=== PATIENT | female | born 1975 | race Caucasian/White ===

== ENCOUNTER 2017-09-12 13:44 | Outpatient (CLI) | payer BC | END 2017-09-12 13:45 | disposition home or self-care (01) | LOC: BICRAD 13:44 | PROVIDERS: ATTEND Allergy & Immunology | DX: R07.9 Chest pain, unspecified (principal); M41.9 Scoliosis, unspecified | CPT/HCPCS: 72081 ==

== ENCOUNTER 2018-10-18 08:47 | Inpatient (IN) | payer BC ==
[2018-10-18] MEDS ORDERED: Ondansetron PF 4 MG/2 ML Vial ONE ×2 (08:56→13:24)
[2018-10-18] MEDS ORDERED: PHENYLEPHRINE-NS 100 MCG/ML 10 ML SYRINGE ONE ×2 (08:56→13:24)
[2018-10-18 09:17] VITALS: BMI 29.6
[2018-10-18] MEDS ORDERED: hydrALAZINE 20 MG/ML VIAL SLOW IVP PRN ×3 (09:21→15:40)
[2018-10-18] MEDS ORDERED: Butorphanol Tartrate 1 MG/ML VIAL SLOW IVP PRN (09:23)
[2018-10-18] MEDS ORDERED: Lactated Ringer's 1,000 ML IV SCH (09:30)
[2018-10-18] MEDS ORDERED: Butorphanol Tartrate 1 MG/ML VIAL ONE (09:37)
[2018-10-18] MEDS: Lactated Ringer's 1,000 ML IV SCH ×2 (10:40→11:34)
[2018-10-18] MEDS ORDERED: Diphenoxylate HCl/Atropine Tablet PO PRN ×2 (10:43)
[2018-10-18] MEDS ORDERED: Ibuprofen 800 MG TAB PO PRN (10:43)
[2018-10-18] MEDS ORDERED: Ondansetron PF 4 MG/2 ML Vial IVP PRN ×4 (10:43→15:40)
[2018-10-18] MEDS ORDERED: NS / Oxytocin 40 units/1000ml 1,000 ML IV PRN (10:43)
[2018-10-18] MEDS ORDERED: Carboprost 250 MCG/ML AMP IM PRN (10:43)
[2018-10-18] MEDS ORDERED: Promethazine HCl 25 MG/ML VIAL IM PRN ×3 (10:43→14:28)
[2018-10-18] MEDS ORDERED: Misoprostol 200 MCG TAB PR PRN (10:43)
[2018-10-18] MEDS ORDERED: HYDROcodone/Acetaminophen 5/325 mg Tablet PO PRN ×2 (10:43)
[2018-10-18] MEDS ORDERED: Acetaminophen 500 MG TAB PO PRN (10:43)
[2018-10-18] MEDS ORDERED: Lidocaine 1% (PF) 30 ML VIAL SC PRN (10:43)
[2018-10-18] MEDS ORDERED: Methylergonovine 0.2 MG/ML VIAL IM PRN (10:43)
[2018-10-18] MEDS ORDERED: Fentanyl 4 mcg/Bup 0.1% Cadd 100 ML ONE (10:58)
[2018-10-18 11:01] LABS: Mean Corpuscular HGB CONC 34.6 g/dL (32.0-36.0); Mean Corpuscular Hemoglobin 29.4 pg (27.0-31.0); Mean Corpuscular Volume 84.9 fL (78.0-98.0); Mean Platelet Volume 8.5 fL (7.4-10.4); Platelet Count 278 thou/uL (130-400); RBC Distribution Width 13.6 % (11.5-14.5); Red Blood Cell (RBC) Count 4.42 mill/uL (4.20-5.40); White Blood Cell (WBC) Count 13.2 thou/uL (4.8-10.8)
[2018-10-18] MEDS ORDERED: Bupivacaine 0.25% HCL 30 ML VIAL ONE (11:11)
[2018-10-18 11:42] LABS: HBSAg Index 0.16 S/CO (0-0.99); Hep B Surf Ag Non-Reactive S/CO (NonReactive); Syphilis Antibody Nonreactive (Nonreactive); Syphilis Antibody Index 0.03 S/CO (<1.00 Non-Reactive)
[2018-10-18] MEDS ORDERED: Acetaminophen 325 MG TAB PO PRN (11:51)
[2018-10-18] MEDS ORDERED: Naloxone HCl 0.4 mg/ml Vial IVP PRN ×4 (11:51→14:28)
[2018-10-18] MEDS ORDERED: Lactated Ringer's 500 ML IV PRN (11:51)
[2018-10-18] MEDS ORDERED: diphenhydrAMINE 50 MG/ML VIAL IVP PRN (11:51)
[2018-10-18] MEDS ORDERED: ePHEDrine/0.9% NaCl/PF SYRINGE 50 mg/10 ml SLOW IVP PRN (11:51)
[2018-10-18] MEDS ORDERED: Communication Order-Pharmacy FS SCH ×2 (12:00→14:30)
[2018-10-18] MEDS ORDERED: Fentanyl 4 mcg/Bupivacaine 0.1% Cassette 100 ML EPIDURAL SCH (12:00)
[2018-10-18] MEDS ORDERED: Lidocaine 2% 10 ML INJ ONE (13:19)
[2018-10-18] MEDS ORDERED: MORPHINE 5 MG/10 ML PF VIAL ONE (13:23)
[2018-10-18] MEDS ORDERED: ePHEDrine/0.9% NaCl/PF SYRINGE 50 mg/10 ml ONE (13:24)
[2018-10-18] MEDS ORDERED: Oxytocin 10 UNITS/ML VIAL ONE (13:24)
[2018-10-18] MEDS ORDERED: Terbutaline Sulfate 1 MG/ML VIAL ONE (13:26)
[2018-10-18] MEDS ORDERED: Bicitra 30 ML UDCUP ONE (13:27)
[2018-10-18] MEDS ORDERED: Terbutaline Sulfate 1 MG/ML VIAL SC ONE (13:31)
--- NOTE | 2018-10-18 13:31 | PDOC.EVN ---
Event Note - Event Note Event Note: Recurrent late decels noted, unable to be resolved with resuscitative measures. Discussed with Dr. Gandhi - will proceed with LTCS. Terbutaline given.
[2018-10-18] MEDS ORDERED: CEFAZOLIN 2 GM in Premix Bag 1 BAG IVPB SCH (13:45)
[2018-10-18] MEDS ORDERED: Bicitra 30 ML UDCUP PO SCH (13:45)
[2018-10-18] MEDS ORDERED: Azithromycin 500 MG in Sodium Chloride 0.9% 250 ML 250 ML IVPB SCH (13:45)
[2018-10-18 14:23] LABS: Analyzer IN Cardio OR
[2018-10-18] MEDS ORDERED: Ondansetron HCl/PF 4 MG/2 ML Vial IVP PRN (14:28)
[2018-10-18] MEDS ORDERED: Promethazine HCl 25 MG SUPP PR PRN (14:28)
[2018-10-18] MEDS ORDERED: HYDROmorphone 2 MG/ML VIAL SLOW IVP PRN (14:28)
[2018-10-18] MEDS ORDERED: L&D-Morphine 4 MG/ML VIAL SLOW IVP PRN (14:28)
[2018-10-18] MEDS ORDERED: Meperidine HCl/PF 25 MG/ML VIAL SLOW IVP PRN (14:28)
[2018-10-18] MEDS ORDERED: Ketorolac Tromethamine 30 MG/ML VIAL IVP SCH (14:30)
[2018-10-18] MEDS ORDERED: Bisacodyl 10 MG SUPP PR PRN (15:40)
[2018-10-18] MEDS ORDERED: Simethicone Chewable 80 MG TAB PO PRN (15:40)
[2018-10-18] MEDS ORDERED: Ketorolac Tromethamine 30 MG/ML VIAL ONE (16:26)
[2018-10-18] MEDS ORDERED: Meperidine HCl/PF 25 MG/ML VIAL ONE (16:27)
[2018-10-18] MEDS: Ketorolac Tromethamine 30 MG/ML VIAL IVP PRN (16:28)
[2018-10-18] MEDS: diphenhydrAMINE 50 MG/ML VIAL IVP PRN (17:54)
[2018-10-18] MEDS: Docusate Calcium (SURFAK) 240 MG CAP PO SCH (20:39)
--- NOTE | 2018-10-18 20:49 | OP ---
DATE OF PROCEDURE: 10/18/2018 PREOPERATIVE DIAGNOSES: 1. A 42-year-old [place] female, G1, P0, at 40 to 41 weeks, spontaneous onset of labor. 2. Non-reassuring heart rate tracing remote from delivery at 6 cm with recurrent late decelerations, unresponsive to medical management trials. 3. Moderate meconium. POSTOPERATIVE DIAGNOSES: 1. A 42-year-old [place] female, G1, P0, at 40 to 41 weeks, spontaneous onset of labor. 2. Non-reassuring heart rate tracing remote from delivery at 6 cm with recurrent late decelerations, unresponsive to medical management trials. 3. Moderate meconium. PROCEDURE PERFORMED: Primary low-transverse section without extension. INFORMATION AND DATA ARCHITECT ANALYST SURGEON: Aretha Pena MD ANESTHESIA: Epidural. ESTIMATED BLOOD LOSS: 400 mL. COMPLICATIONS: None. ANTIBIOTICS: 2 g Ancef, on-call to OR. FINDINGS: 1. Male , vertex presentation, double nuchal cord noted, 6 pounds 15 ounces weight. 7 and 9. 2. Meconium moderate noted with meconium staining of placental membranes. 3. Normal-appearing fallopian tubes, uterus, and ovaries. PATHOLOGY: Placenta. COUNTS: Correct x2. DISPOSITION: Recovery room, stable. DESCRIPTION OF PROCEDURE: The patient was taken back to the operating room for nonreassuring heart rate tracing. Her epidural was adequately dosed, and she was prepped and draped in usual sterile fashion. A Pfannenstiel incision was made through the lower abdomen was carried down to the fascia. Fascia was nicked in the midline. Fascial incision was extended bilaterally using curved Miller scissors. The rectus fascia was then dissected superiorly and inferiorly off the rectus muscle bellies. The rectus muscle bellies divided in midline, and peritoneal cavity was entered. Bladder blade was placed. A 2-cm hysterotomy incision was made above the vesicouterine peritoneal fold. This was extended via finger fractionation. The baby was then delivered in the vertex presentation. The mouth and nares of the were bulb suctioned on the abdomen. The cord was doubly clamped and cut and handed to the acid wash operator, Dr. Pate, who was in attendance. Usual cord blood and segment for arterial blood gas were sent along with cord blood. Placenta was extracted, and uterus was externalized. The uterus was curetted of any remaining placental fragments with a dry laparotomy sponge. Hysterotomy incision was closed with #1 Monocryl in running locking fashion with good hemostasis noted. The uterus was placed back in the abdomen. Pelvis was irrigated and suctioned. There was some oozing on the right inferior border of the hysterotomy incision, and additional [id number]-tz-lapie stitch was placed with Monocryl securing hemostasis. The pelvis again was irrigated and suctioned, hemostasis was confirmed. The rectus muscle belly was noted to be hemostatic prior to fascial closure. The fascia was closed with 0 PDS suture x2 in a running continuous fashion. Subcutaneous tissue was irrigated, noted to be hemostatic prior to skin approximation with shawna. The surgery was terminated. There were no anesthetic or surgical complications. Job ID: [id number]
[2018-10-19] MEDS: diphenhydrAMINE 50 MG/ML VIAL IVP PRN ×2 (00:18→06:01)
[2018-10-19] MEDS: Ketorolac Tromethamine 30 MG/ML VIAL IVP PRN ×2 (00:26→06:02)
[2018-10-19] MEDS: Lactated Ringer's 1,000 ML IV SCH ×3 (00:28→15:33)
[2018-10-19] MEDS ORDERED: HYDROcodone/Acetaminophen 5/325 mg Tablet PO PRN ×2 (02:30)
[2018-10-19] MEDS ORDERED: Sodium Chloride 0.9% 0 ML ONE (03:28)
[2018-10-19 06:55] LABS: Hemoglobin 9.2 g/dL (12.0-16.0); Mean Corpuscular Hemoglobin 30.1 pg (27.0-31.0); Mean Corpuscular Volume 88.4 fL (78.0-98.0); Mean Platelet Volume 7.2 fL (7.4-10.4); Platelet Count 203 thou/uL (130-400); RBC Distribution Width 13.6 % (11.5-14.5); Red Blood Cell (RBC) Count 3.05 mill/uL (4.20-5.40); White Blood Cell (WBC) Count 14.7 thou/uL (4.8-10.8)
--- NOTE | 2018-10-19 07:41 | PDOC.PP ---
Post Progress Note Post Day #: 1 Subjective: Doing well. Pain well controlled. Ocampo d/c'd this am, has not attempted to urinate. PO intake tolerated: yes Ambulation: no Vital Signs (12 hours) Temp Pulse Resp BP 10/19/18 06:10 99.0 F 80 16 107/53 L 10/19/18 00:20 99.0 F 79 18 122/57 L Weight Weight 178 lb - Physical Examination General: NAD Respiratory: non-labored breathing Abdominal: lochia (normal), no distention, appropriately TTP Fundus firm & at: below umbilicus Skin: CS incision dry & intact, no rash Neurological: no gross focal deficits Psychiatric: A&Ox3, normal affect Result Diagrams: 10/19/18 06:14 Additional Labs: Post Labs Blood Type O POSITIVE 10/18/18 12:20 Hep Bs Antigen Non-Reactive S/CO (NonReactive) 10/18/18 10:45 (1) delivery delivered Code(s): O82 - ENCOUNTER FOR DELIVERY WITHOUT INDICATION Status: Acute (2) heart rate decelerations affecting management of mother Code(s): O36.8390 - MATERN CARE FOR ABNLT FETL HRT RATE OR RHYM, UNSP TRI, UNSP Status: Acute - Assessment/Plan Continue routine post-op care. Encouraged ambulation today. Possible d/c tomorrow vs Sunday.
[2018-10-19] MEDS: Prenatal Vitamin 1 TAB PO SCH (08:52)
[2018-10-19] MEDS: Docusate Calcium (SURFAK) 240 MG CAP PO SCH ×2 (08:53→21:47)
[2018-10-19] MEDS: Acetaminophen 325 MG TAB PO PRN ×3 (08:55→22:16)
[2018-10-19] MEDS ORDERED: Adacel (T-DAP) 0.5 ML SYRINGE IM ONE (09:00)
[2018-10-19] MEDS: Naloxone HCl 0.4 mg/ml Vial IV PRN ×3 (13:56→15:03)
[2018-10-19] MEDS: Ibuprofen 800 MG TAB PO SCH ×2 (13:59→21:47)
[2018-10-19] MEDS ORDERED: Lanolin Ointment 7 GM TUBE TOP PRN (19:46)
--- NOTE | 2018-10-20 01:01 | PDOC.PP ---
Post Progress Note Post Day #: 2 Subjective: 42 yo F s/p pLTCS pp day 2. Pt reports pain well controlled with tylenol and motrin. All pp milestones met. PO intake tolerated: yes Flatus: yes Ambulation: yes Vital Signs (12 hours) Temp Pulse Resp BP 10/19/18 19:55 98.6 F 80 18 114/50 L 10/19/18 17:30 98.3 F 72 14 103/51 L Weight Weight 80.739 kg - Physical Examination General: NAD Cardiovascular: no m/r/g, RRR Respiratory: clear to auscultation bilaterally Abdominal: no distention, appropriately TTP Skin: CS incision dry & intact Neurological: no gross focal deficits Psychiatric: normal affect Result Diagrams: 10/19/18 06:14 Additional Labs: Post Labs Blood Type O POSITIVE 10/18/18 12:20 Hep Bs Antigen Non-Reactive S/CO (NonReactive) 10/18/18 10:45 (1) delivery delivered Code(s): O82 - ENCOUNTER FOR DELIVERY WITHOUT INDICATION Status: Acute - Assessment/Plan PP day 2 s/p pLTCS - will plan for dc to home this afternoon - pain control with prn tramadol ttylenol and motrin - f/u within the week for staple removal Addendum - Attending - Attending Attestation Date/Time: 10/20/18 [id number] I personally evaluated the patient and discussed the management with Dr. Hughes. I agree with the Assessment and Plan documented above.
[2018-10-20] MEDS: Lactated Ringer's 1,000 ML IV SCH ×2 (04:50→11:52)
[2018-10-20] MEDS: Ibuprofen 800 MG TAB PO SCH ×2 (06:02→14:10)
[2018-10-20 09:01] VITALS: BP 114/55; TEMP 98.4
[2018-10-20] MEDS: Docusate Calcium (SURFAK) 240 MG CAP PO SCH (10:17)
[2018-10-20] MEDS: Prenatal Vitamin 1 TAB PO SCH (10:17)
[2018-10-20] MEDS: Acetaminophen 325 MG TAB PO PRN (10:20)
--- NOTE | 2018-10-22 09:16 | OP ---
DATE OF PROCEDURE: 10/18/2018 ADDENDUM: I was present and scrubbed to assist the uncomplicated urgent low-transverse for non-reassuring status with Dr. Ondina Gandhi. Please see her note for full details. Job ID: [id number]
== END 2018-10-20 15:15 | disposition home or self-care (01) | DRG 788 ==
LOC: L&D/OP 08:47 → L&D 10:41 → 3SW 17:07
PROVIDERS: ADMIT Obstetrics & Gynecology; ATTEND Obstetrics & Gynecology
PROC: 10D00Z1 Extraction of Products of Conception, Low, Open Approach (ICD-10-PCS; principal; 2018-10-18)
DX: O76 Abnormality in fetal heart rate and rhythm complicating labor and delivery (principal); Z3A.40 40 weeks gestation of pregnancy; Z37.0 Single live birth; O48.0 Post-term pregnancy; O77.0 Labor and delivery complicated by meconium in amniotic fluid; O69.1XX0 Labor and delivery complicated by cord around neck, with compression, not applicable or unspecified
CPT/HCPCS: 36415; 51702; 82805; 85027; 86780; 86850; 86900; 86901; 87340; J0595; J0690; J1200; J1885; J2001; J2175; J2274; J2310; J2405; J2590; J3105; S0020

== ENCOUNTER 2021-08-02 17:30 | Outpatient (CLI) | payer BC | END 2021-08-02 17:31 | disposition home or self-care (01) | LOC: SLEEPLAB 17:30 | PROVIDERS: ATTEND Family Medicine | DX: G47.10 Hypersomnia, unspecified (principal); G47.00 Insomnia, unspecified; R53.83 Other fatigue | CPT/HCPCS: 95800 ==